=== PATIENT | male | born 1955 | race Caucasian/White ===

== ENCOUNTER 2016-09-04 08:26 | Day surgery (SDC) | payer BC ==
[2016-09-03 08:16] LABS: HEMATOCRIT 44.4 % (40.0-51.0); HEMOGLOBIN 15.4 g/dL (13.6-17.8)
[2016-09-03 08:34] LABS: BUN (BLOOD UREA NITROGEN) 13 MG/DL (6-23); CALCIUM, SERUM 9.2 MG/DL (8.5-10.4); CHLORIDE, SERUM 109 MMOL/L (96-112); CO2 (CARBON DIOXIDE) 27 MMOL/L (24-34); CREATININE 1.13 MG/DL (0.70-1.30); GFR AFRICAN AMERICAN 80 ML/MIN (>=60); GFR NON AFRICAN AMERICAN 69 ML/MIN (>=60); GLUCOSE, SERUM 126 MG/DL (60-99); POTASSIUM, SERUM 4.3 MMOL/L (3.5-5.3); SODIUM, SERUM 143 MMOL/L (135-148)
--- NOTE | ~2016-09-04 | OP ---
Record Of Operation [facility] [address] [place]. [address] NAME: TAYLOR BECK : 53 STATUS : REG [facility]#: [id number] AGE: 61 ADM/REG DATE : 09/04/16 MR#: [id number] REPORT SERV DATE: 09/04/16 DICTATED BY: BRIAN NEGRETE III DATE: 09/04/16 REPORT STATUS : Draft TRANSCRIBED BY: MODL DATE: 09/04/16 DATE OF PROCEDURE: 09/04/2016 PREOPERATIVE DIAGNOSIS: Right spermatocele. POSTOPERATIVE DIAGNOSIS: Right spermatocele. PROCEDURE: Right spermatocelectomy. SURGEON: Brian Negrete M.D. ANESTHESIA: General plus right spermatic cord block. SPECIMEN: Spermatocele sac. BLOOD LOSS: 10 mL. DRAINS: None. INDICATION: Mr. Beck is a 61-year-old white male, found to have a rather large right spermatocele. He has been counseled. He provides informed consent for right spermatocelectomy. DESCRIPTION OF PROCEDURE: After consent was obtained, the patient was identified and was taken to the OR and put to sleep. He was then prepped and draped in the supine position under the usual fashion. An incision was made over the right spermatocele transversely in the right hemiscrotum. Dissection was taken down through the dartos layers until the spermatocele sac was identified. This was freed up from surrounding tissues and delivered through the incision along with the testicle. Attachment to the spermatocele were taken down until there was a neck left attached to the epididymis. This was clamped with a hemostat and the spermatocele was cut, was removed, 3-0 chromic with suture ligature was used on the epididymal stump. Hemostasis was obtained with cautery. The testicle was replaced in the right hemiscrotum, which was then irrigated. The dartos was closed with a running locking 3-0 chromic suture and the skin with a 4-0 Monocryl subcuticular stitch. Dermabond was applied. Spermatic cord block was performed with 0.5% Marcaine plain. 10 mL were used. A fluff gauze with a pressure dressing was then applied. The patient was awakened and taken to the recovery in stable condition. PH/MODL Brian Negrete III, M.D. / [id number] Record Of Operation [address] [address] NAME: TAYLOR BECK : 53 STATUS : REG [facility] PAT#: [id number] AGE: 61 ADM/REG DATE : 09/04/16 MR#: [id number] REPORT SERV DATE: 09/04/16 DICTATED BY: BRIAN NEGRETE III DATE: 09/04/16 REPORT STATUS : Draft TRANSCRIBED BY: MODL DATE: 09/04/16 CC: Brian Negrete III, M.D.
[~2016-09-04 08:26] MED LIST: ACET500CAP PO; CYMBALTA60 PO; HYDROCHLOROT25 MG PO; LIPITOR80 MG PO; NEUR300 PO; NORCO1 TA1 PO; PLAVIX PO
== END 2016-09-04 15:34 | disposition home or self-care (01) ==
LOC: SDC 08:26
PROVIDERS: Urology
PROC: 0VBJ0ZZ Excision of Right Epididymis, Open Approach (ICD-10-PCS; principal; 2016-09-04 10:00)
DX: N43.40 Spermatocele of epididymis, unspecified (principal); I10 Essential (primary) hypertension; I71.4 Abdominal aortic aneurysm, without rupture; E78.5 Hyperlipidemia, unspecified; E78.00 Pure hypercholesterolemia, unspecified; J44.9 Chronic obstructive pulmonary disease, unspecified; F17.210 Nicotine dependence, cigarettes, uncomplicated; H91.90 Unspecified hearing loss, unspecified ear; Z86.73 Personal history of transient ischemic attack (TIA), and cerebral infarction without residual deficits; Z85.828 Personal history of other malignant neoplasm of skin; Z79.02 Long term (current) use of antithrombotics/antiplatelets; Z79.899 Other long term (current) drug therapy; Z98.890 Other specified postprocedural states
CPT/HCPCS: 80048; 85014; 85018; 88304; 93005; J0690; J2250; J2270; J2405; J3010